=== PATIENT | female | born 1995 | race Caucasian/White ===

== ENCOUNTER 2020-06-03 19:58 | Emergency (ER) | payer SELFPAY ==
[2020-06-03] MEDS ORDERED: NORMAL SALINE 1000 ML 1,000 ML IV ONE (20:58)
--- NOTE | 2020-06-03 20:58 | ER Document Report ---
ED Medical Screen (RME) - General Chief Complaint: Abscess Stated Complaint: POSSIBLE ABSCESS Time Seen by Provider: 06/03/20 20:50 - HPI Notes: 06/03/20 20:56 24-year-old female to the emergency department with complaints of progressively worsening redness, abscess, right arm pain that began 4 days ago after injecting IV heroin. She states that she initially circled the area of redness and now it is nearly become circumferential on the right forearm. She states that she has been using IV heroin for a while and had gone to rehab but then relapsed. She denies any fevers or chills. She states her arm hurts very badly. On brief medical screening exam she has nearly circumferential arm erythema, hot to touch, two areas of possible abscess to the forearm. This is a concerning infection given her IV drug abuse; noted HR of 121. patient currently declining empiric IV ABx use. I performed a brief medical screening exam on the patient determined that the patient needs further evaluation and management by main side provider. I have placed initial orders to help expedite care. Physical Exam - Vital signs Vitals: Temp Pulse Resp BP Pulse Ox 98.7 F 121 H 18 113/69 100 06/03/20 20:43 06/03/20 20:43 06/03/20 20:43 06/03/20 20:43 06/03/20 20:43 Course - Vital Signs Vital signs: Temp Pulse Resp BP Pulse Ox 98.7 F 121 H 18 113/69 100 06/03/20 20:43 06/03/20 20:43 06/03/20 20:43 06/03/20 20:43 06/03/20 20:43
[2020-06-03] MEDS ORDERED: ACETAMINOPHEN 325 MG TABLET PO ONE (21:00)
--- NOTE | 2020-06-03 21:42 | RADIOLOGY REPORT (SQ) ---
2 VIEWS RIGHT FOREARM HISTORY: Cellulitis. Evaluate for acute osteomyelitis. COMPARISON: None. FINDINGS: There is no cortical erosion or periosteal reaction to suggest acute osteomyelitis. No acute fracture. Diffuse soft tissue swelling of the right elbow. No foreign bodies. IMPRESSION: No radiographic evidence of osteomyelitis. If there is high clinical concern, consider MRI or bone scintigraphy for further evaluation.
--- NOTE | 2020-06-03 21:55 | ER Document Report ---
ED General - General Chief Complaint: Abscess Stated Complaint: POSSIBLE ABSCESS Time Seen by Provider: 06/03/20 20:50 - HPI Patient complains to provider of: abscess Notes: seen briefly as patient is asking to leave AMA has a right forearm abscess/cellulitis ongoing for "a couple days" no fever or chills denies light headedness or dizziness denies chance or Past Medical History - Social History Smoking Status: Current Every Day Smoker Drug Abuse: Heroin Family History: Reviewed & Not Pertinent Review of Systems - Review of Systems Constitutional: No symptoms reported EENT: No symptoms reported Cardiovascular: No symptoms reported Respiratory: No symptoms reported Gastrointestinal: No symptoms reported Genitourinary: No symptoms reported Female Genitourinary: No symptoms reported Musculoskeletal: No symptoms reported Skin: Change in color, Other - painful swollen area to right forearm Hematologic/Lymphatic: No symptoms reported Neurological/Psychological: No symptoms reported Physical Exam - Vital signs Vitals: Temp Pulse Resp BP Pulse Ox 98.7 F 121 H 18 113/69 100 06/03/20 20:43 06/03/20 20:43 06/03/20 20:43 06/03/20 20:43 06/03/20 20:43 Interpretation: Normal - General General appearance: Appears well, Alert - HEENT Head: Normocephalic, Atraumatic Eyes: Normal Pupils: PERRL - Respiratory Respiratory status: No respiratory distress Chest status: Nontender Breath sounds: Normal Chest palpation: Normal - Cardiovascular Rhythm: Tachycardia Heart sounds: Normal auscultation Murmur: No - Abdominal Inspection: Normal Distension: No distension Bowel sounds: Normal Tenderness: Nontender Organomegaly: No organomegaly - Back Back: Normal, Nontender - Extremities General upper extremity: Normal inspection, Nontender, Normal color, Normal ROM, Normal temperature General lower extremity: Normal inspection, Nontender, Normal color, Normal ROM, Normal temperature, Normal weight bearing. No: Keenan's sign - Neurological Neuro grossly intact: Yes Cognition: Normal Orientation: AAOx4 [place] Coma Scale Eye Opening: Spontaneous [place] Coma Scale Verbal: Oriented [place] Coma Scale Motor: Obeys Commands [place] Coma Scale Total: 15 Speech: Normal Motor strength normal: LUE, RUE, LLE, RLE Sensory: Normal - Psychological Associated symptoms: Normal affect, Normal mood - Skin Skin Temperature: Warm Skin Moisture: Dry Skin Color: Normal Notes: right forearm has an area or redness/tenderness w/ fluctuance on volar aspect. pulses normal and no significant tightness to compartments Course - Re-evaluation Re-evalutation: 06/03/20 21:54 patient seen briefly after refusing labs she is requesting to leave counseled on risk of sepsis, septic shock and offered rx for bactrim if patient is unable to return in AM for further treatment as she says she is she is of sound mind to make her own decisions - Vital Signs Vital signs: Temp Pulse Resp BP Pulse Ox 98.7 F 121 H 18 113/69 100 06/03/20 20:43 06/03/20 20:43 06/03/20 20:43 06/03/20 20:43 06/03/20 20:43 Discharge - Discharge Clinical Impression: Abscess Condition: Stable Disposition: AGAINST MEDICAL ADVICE Instructions: Abscess ([facility]) Additional Instructions: please return when you decide to seek treatment Prescriptions: Sulfamethoxazole/Trimethoprim [Bactrim Ds Tablet] 1 each PO BID #20 tablet
[2020-06-03 22:49] VITALS: BP 116/71
== END 2020-06-03 22:00 | disposition left against medical advice (07) ==
LOC: ER 19:58
DX: L02.413 Cutaneous abscess of right upper limb (principal); F17.200 Nicotine dependence, unspecified, uncomplicated
CPT/HCPCS: 99283